=== PATIENT | male | born 1980 | race Caucasian/White ===

== ENCOUNTER 2017-03-30 23:58 | Emergency (ER) | payer OTHER ==
--- NOTE | 2017-03-31 04:39 | ED ORDER SUMMARY ---
..... Patient: JOHN GALE OrderSheet [facility] VisitID: [id number] [place] [address] 36y, M Registration Date/Time: 03/30/2017 ORDER SHEET Weight: 81.6 kg (stated) Allergies: NyQuil GENERAL ORDERS: Dormitory Keeper (Continuous) (00:17 03/31/2017 Dayne BRAVO) (0:27 JQuivey R.N.) Ethyl Alcohol Urgent (00:35 03/31/2017 Dayne BRAVO) (Ack 0:42 [employer] ER Legal Transcriptionist) (1:24 JQuivey R.N.) Urine Drug Screen Urgent (00:35 03/31/2017 Dayne BRAVO) (Ack 0:42 [employer] ER Legal Transcriptionist) (6:07 JQuivey R.N.) MEDICATION ORDERS: IV FLUIDS: Zofran IV 4 mg (NOW) (00:06 03/31/2017 JQuivey R.N. per protocol) (0:07 JQuivey R.N.) IV NS : initial bolus none -, then 1000 mL/hr (NOW) (03:22 03/31/2017 JQuivey R.N. verbal order read back to Dayne BRAVO) (3:23 JQuivey R.N.) Zofran IV 4 mg (NOW) (04:25 03/31/2017 JQuivey R.N. per protocol) (4:26 JQuivey R.N.) ORDER SHEET NOTES: [Electronically signed by Amarjit Villegas R.N. (06:34 03/31/2017)] [Electronically signed by Geoffrey Uriarte MD (21:40 03/31/2017)] [Electronically locked/signed by Amarjit Villegas R.N. (06:34 03/31/2017)]
--- NOTE | 2017-03-31 04:39 | ED ORDER SUMMARY ---
..... Patient: JOHN GALE OrderSheet [facility] VisitID: [id number] [place] [address] 36y, M Registration Date/Time: 03/30/2017 ORDER SHEET Weight: 81.6 kg (stated) Allergies: NyQuil GENERAL ORDERS: Supervisor Pressing Department (Continuous) (00:17 03/31/2017 Dayne BRAVO) (0:27 JQuivey R.N.) Ethyl Alcohol Urgent (00:35 03/31/2017 Dayne BRAVO) (Ack 0:42 [employer] ER Risk Compliance Analyst) (1:24 JQuivey R.N.) Urine Drug Screen Urgent (00:35 03/31/2017 Dayne BRAVO) (Ack 0:42 [employer] ER Risk Compliance Analyst) (6:07 JQuivey R.N.) MEDICATION ORDERS: IV FLUIDS: Zofran IV 4 mg (NOW) (00:06 03/31/2017 JQuivey R.N. per protocol) (0:07 JQuivey R.N.) IV NS : initial bolus none -, then 1000 mL/hr (NOW) (03:22 03/31/2017 JQuivey R.N. verbal order read back to Dayne BRAVO) (3:23 JQuivey R.N.) Zofran IV 4 mg (NOW) (04:25 03/31/2017 JQuivey R.N. per protocol) (4:26 JQuivey R.N.) ORDER SHEET NOTES: [Electronically signed by Amarjit Villegas R.N. (06:34 03/31/2017)] [Electronically signed by Geoffrey Uriarte MD (21:40 03/31/2017)] [Electronically locked/signed by Amarjit Villegas R.N. (06:34 03/31/2017)]
--- NOTE | 2017-03-31 04:39 | ED CLINICAL REPORT ---
Clinical Report - Physicians/Mid Levels [facility] [address] [place] [address] 03/30/2017 23:57 Patient: JOHN GALE Time Seen: 00:00. Arrived- By ambulance. Historian- patient and EMS personnel. HISTORY OF PRESENT ILLNESS Chief Complaint: DRUG OVERDOSE. This occurred just prior to arrival. Toxic symptoms present in ED with drowsiness. Single drug taken- Heroin. 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 Patient was breathing about 4-6 / min). (Patient reports he injected heroin. He was found down was treated with intranasal Narcan and was brought here to the emergency room). REVIEW OF SYSTEMS No chills, fever, sweats, calf pain or chest pain. No cough, difficulty breathing, pedal edema, palpitations or abdominal pain. No constipation, diarrhea, nausea, vomiting or urinary problems. All systems otherwise negative, except as recorded above. PAST HISTORY Problems: Substance Abuse. Anxiety Reaction. Additional Surgeries: no known surgeries. Medications: None. Allergies: NyQuil. SOCIAL HISTORY Current every day light tobacco smoker (cigarette)- less than 1/2 a pack per day. Occasional alcohol use. History of drug use: heroin, methamphetamines. FAMILY HISTORY Denies family medical history. ADDITIONAL NOTES The nursing notes have been reviewed. PHYSICAL EXAM Vital Signs: 03/30/2017 23:59 BP: 155/81. HR: 106. RR: 13. O2 saturation: 91%. Temp: 98.2 F. Pain level now: 0/10. Have been reviewed. Appearance: The patient is somnolent. ENT: Normal ENT inspection. Pharynx normal. Neck: Normal inspection. Neck supple. No carotid bruit. CVS: Normal heart rate and rhythm. Heart sounds normal. Respiratory: No respiratory distress. Breath sounds normal. Abdomen: Soft and nontender. No organomegaly. Back: Normal inspection. Skin: Skin warm and dry. Normal skin color. Normal skin turgor. Extremities: Extremities exhibit normal ROM. No lower extremity edema. Neuro: Alertness is decreased. PROGRESS AND PROCEDURES Course of Care: Patient is stable. Symptoms better. Vital signs have been reviewed. Physical exam findings are improved. Alert. No acute distress. Breath sounds normal. No respiratory distress. Normal heart rate and rhythm. Heart sounds normal. Abdomen soft and nontender. Skin warm and dry. Patient/family counseled. Old medical records reviewed. Disposition: Discharged. Condition: stable. CLINICAL IMPRESSION Overdose with heroin. Substance abuse- heroin, methamphetamines. INSTRUCTIONS Stay with responsible adult family member (or other responsible adult). Warnings: Further evaluation is necessary. GENERAL WARNINGS: Return or contact your physician immediately if your condition worsens or changes unexpectedly, if not improving as expected, or if other problems arise. Follow-up: Follow up with your doctor SAKINA NUÑEZ as needed. Understanding of the discharge instructions verbalized by patient. (Electronically signed by Geoffrey Uriarte MD 03/31/2017 21:40)
--- NOTE | 2017-03-31 04:39 | ED CLINICAL REPORT ---
Clinical Report - Physicians/Mid Levels [facility] [address] [place] [address] 03/30/2017 23:57 Patient: JOHN GALE Time Seen: 00:00. Arrived- By ambulance. Historian- patient and EMS personnel. HISTORY OF PRESENT ILLNESS Chief Complaint: DRUG OVERDOSE. This occurred just prior to arrival. Toxic symptoms present in ED with drowsiness. Single drug taken- Heroin. 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 Patient was breathing about 4-6 / min). (Patient reports he injected heroin. He was found down was treated with intranasal Narcan and was brought here to the emergency room). REVIEW OF SYSTEMS No chills, fever, sweats, calf pain or chest pain. No cough, difficulty breathing, pedal edema, palpitations or abdominal pain. No constipation, diarrhea, nausea, vomiting or urinary problems. All systems otherwise negative, except as recorded above. PAST HISTORY Problems: Substance Abuse. Anxiety Reaction. Additional Surgeries: no known surgeries. Medications: None. Allergies: NyQuil. SOCIAL HISTORY Current every day light tobacco smoker (cigarette)- less than 1/2 a pack per day. Occasional alcohol use. History of drug use: heroin, methamphetamines. FAMILY HISTORY Denies family medical history. ADDITIONAL NOTES The nursing notes have been reviewed. PHYSICAL EXAM Vital Signs: 03/30/2017 23:59 BP: 155/81. HR: 106. RR: 13. O2 saturation: 91%. Temp: 98.2 F. Pain level now: 0/10. Have been reviewed. Appearance: The patient is somnolent. ENT: Normal ENT inspection. Pharynx normal. Neck: Normal inspection. Neck supple. No carotid bruit. CVS: Normal heart rate and rhythm. Heart sounds normal. Respiratory: No respiratory distress. Breath sounds normal. Abdomen: Soft and nontender. No organomegaly. Back: Normal inspection. Skin: Skin warm and dry. Normal skin color. Normal skin turgor. Extremities: Extremities exhibit normal ROM. No lower extremity edema. Neuro: Alertness is decreased. PROGRESS AND PROCEDURES Course of Care: Patient is stable. Symptoms better. Vital signs have been reviewed. Physical exam findings are improved. Alert. No acute distress. Breath sounds normal. No respiratory distress. Normal heart rate and rhythm. Heart sounds normal. Abdomen soft and nontender. Skin warm and dry. Patient/family counseled. Old medical records reviewed. Disposition: Discharged. Condition: stable. CLINICAL IMPRESSION Overdose with heroin. Substance abuse- heroin, methamphetamines. INSTRUCTIONS Stay with responsible adult family member (or other responsible adult). Warnings: Further evaluation is necessary. GENERAL WARNINGS: Return or contact your physician immediately if your condition worsens or changes unexpectedly, if not improving as expected, or if other problems arise. Follow-up: Follow up with your doctor SAKINA NUÑEZ as needed. Understanding of the discharge instructions verbalized by patient. (Electronically signed by Geoffrey Uriarte MD 03/31/2017 21:40)
--- NOTE | 2017-03-31 04:39 | ED NURSING NOTES ---
Clinical Report - Nurses [facility] [address] [place] [address] 03/30/2017 23:57 Patient: JOHN GALE TRIAGE Triage time 23:59. Acuity: LEVEL 3. Chief Complaint: DRUG OVERDOSE. Alert. SEPSIS SCREEN: Sepsis Screen. Negative (no infection suspected/documented). BUCKY COMA SCORE: Bucky Coma Scale: 15- eyes open spontaneously (4); best verbal response- oriented x 4 (5); best motor response- obeys commands (6). --00:12 Amarjit Villegas R.N. 23:59 03/30/17. BP: 155/81. HR: 106. RR: 13. O2 saturation: 91% on room air. Temp: 98.2 F (oral). Pain level now: 0/10. --00:12 Amarjit Villegas R.N. Weight: 81.6 kg stated. Height/Length: 69 inches Per Patient. BMI: 26.6. --00:02 Amarjit Villegas R.N. Medications None. --00:01 Amarjit Villegas R.N. Allergies NyQuil. --00:01 Amarjit Villegas R.N. History Arrived by EMS. Historian: patient. Unaccompanied. Primary physician (None). This occurred just prior to arrival. Treatment PLANT OPERATIONS ENGINEER: EMS treatment PLANT OPERATIONS ENGINEER verbally communicated. Medications given- (1 mg intranasal Narcan). 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 Patient was breathing about 4-6 / min.). PAST MEDICAL HX: Immunizations: up-to-date. SOCIAL HX: Current every day light tobacco smoker- less than 1/2 a pack per day. Occasional alcohol use. History of heavy drug use: heroin, methamphetamines. No infectious disease exposure. ABUSE ASSESSMENT: No report of abuse. FALL RISK ASSESSMENT: Fall risk assessment completed. No fall risk identified. NUTRITIONAL RISK ASSESSMENT: The nutritional risk assessment revealed no deficiencies. FUNCTIONAL ASSESSMENT: Functional assessment: no impairments noted. LEARNING NEEDS ASSESSMENT: The learning needs assessment revealed no barriers. SKIN INTEGRITY ASSESSMENT: Skin integrity risk assessment completed. No skin integrity risk identified. --00:12 Amarjit Villegas R.N. PROBLEMS: Anxiety Reaction. --00:02 Amarjit Villegas R.N. ADDITIONAL SURGERIES: no known surgeries. Interventions ID band on patient. To treatment room. --00:12 Amarjit Villegas R.N. PHYSICAL ASSESSMENT 00:02. To room via stretcher. Patient gowned. GENERAL / NEURO / PSYCH: Alert. Oriented X 4. Patient appears calm and cooperative. Gag reflex present. Speech within normal limits. RESPIRATORY: Respirations not labored. SKIN: Skin intact. Skin is warm and dry. Skin color is within normal limits. Affect appears within normal limits. --00:05 Amarjit Villegas R.N. NURSING PROGRESS NOTES 00:01 03/31/2017 Site #1 started via IV in the left antecubital space with an 20g angiocath; one attempt. Blood drawn: rainbow set. Labeled in the presence of the patient and sent to the lab. Saline lock flushed with 10 mL saline (by Liborio HOU). --00:04 Amarjit Villegas R.N. 00:03. Oxygen administered by nasal cannula at 2 liters. --00:05 Amarjit Villegas R.N. 00:05. spark plug assembler, pulse oximeter and NIBP monitor placed on patient; monitor alarms on. Head of bed elevated. Two patient identifiers checked. Call light placed in reach. Bed placed in lowest position. Brakes of bed on. --00:05 Amarjit Villegas R.N. 00:05 03/31/2017 Zofran (Ondansetron HCl) IVP 4 mg given over 2 minute(s) via site #1. Allergies verified and confirmed 5 rights. IV patency established. IV site checked: no pain, redness, or swelling. IV flushed thoroughly pre- and post-medication administration. --00:07 Amarjit Villegas R.N. 00:41 03/31/17. BP: 103/56. HR: 81. RR: 11. O2 saturation: 100% on nasal cannula at 2 liters/minute. --00:42 Amarjit Villegas R.N. Cardiac rhythm: normal sinus rhythm. --00:42 Amarjit Villegas R.N. 01:23 03/31/17. BP: 122/68. HR: 84. RR: 17. O2 saturation: 100% on nasal cannula at 2 liters/minute. --01:24 Amarjit Villegas R.N. Cardiac rhythm: normal sinus rhythm. The patient is sleeping. RESPIRATORY: No respiratory distress. SKIN: Skin color within normal limits. --01:24 Amarjit Villegas R.N. 01:42 Patient informed of the need of a urine sample, urinal placed on bedrail. --01:43 Amarjit Villegas R.N. 02:36 Reminded pt again of the need for a urine sample. The patient is calm and resting quietly. RESPIRATORY: No respiratory distress. SKIN: Skin is warm and dry. Skin color within normal limits. --02:37 Amarjit Villegas R.N. 02:36 03/31/17. BP: 111/55. HR: 75. RR: 16. O2 saturation: 100% on nasal cannula at 2 liters/minute. --02:37 Amarjit Villegas R.N. 03:12 Patient assisted to restroom to obtain urine sample. --03:13 Amarjit Villegas R.N. 03:20 Patient unable to void. --03:22 Amarjit Villegas R.N. 03:23 03/31/2017 Started bag #1 1000 mL IV Fluids IV NS (Saline); at 1000 mL/hr over 1 hour(s) via site #1 --03:23 Amarjit Villegas R.N. 03:21 Patient back in bed. --03:23 Amarjit Villegas R.N. 03:36 03/31/17. BP: 117/64. HR: 77. RR: 13. O2 saturation: 95% on room air. --03:37 Amarjit Villegas R.N. Cardiac rhythm: normal sinus rhythm. The patient is sleeping. RESPIRATORY: No respiratory distress. SKIN: Skin color within normal limits. --03:37 Amarjit Villegas R.N. 04:05 03/31/2017 IV Fluids IV NS Discontinued: bag #1 infused. Total amount infused: 1000 mL. --04:05 Amarjit Vlilegas R.N. 04:05 Patient to restroom - attempting to collect urine sample. --04:06 Amarjit Villegas R.N. 04:17 Patient back in bed - still unable to provide urine sample, pt complaining of nausea, new emesis bag provided. --04:24 Amarjit Villegas R.N. 04:19 Patient vomited - new emesis bag provided. --04:24 Amarjit Villegas R.N. 04:23 03/31/2017 Started bag #2 1000 mL IV Fluids IV NS (Saline); at 1000 mL/hr over 1 hour(s) via site #1 --04:25 Amarjit Villegas R.N. 04:24 03/31/2017 Zofran (Ondansetron HCl) IVP 4 mg given over 2 minute(s) via site #1. Allergies verified and confirmed 5 rights. IV patency established. IV site checked: no pain, redness, or swelling. IV flushed thoroughly pre- and post-medication administration. --04:26 Amarjit Villegas R.N. 05:05 03/31/2017 IV Fluids IV NS Bag Change: bag #2 infused. Total amount infused: 1000. STARTED bag #3 at 1000 mL/hr. IV patency established. IV site checked: no pain, redness, or swelling. IV flushed thoroughly. (bags # [address] Uriarte verbal order). --05:05 Amarjit Villegas R.N. Cardiac rhythm: normal sinus rhythm. The patient is sleeping. RESPIRATORY: No respiratory distress. SKIN: Skin color within normal limits. --05:06 Amarjit Villegas R.N. 05:05 03/31/17. BP: 119/56. HR: 76. RR: 12. O2 saturation: 94% on room air. --05:06 Amarjit Villegas R.N. 06:00 Patient to restroom. --06:07 Amarjit Villegas R.N. 06:01. Patient ID band checked for patient name and birthdate: patient confirmed. Clean catch urine collected with return of yellow-colored clear urine; sample sent to lab for drug screen. Specimen labeled in the presence of the patient. --06:07 Amarjit Villegas R.N. 05:57 03/31/2017 IV Fluids IV NS Discontinued: bag #3 infused. Total amount infused: 1000 mL. IV patency established. IV site checked: no pain, redness, or swelling. IV flushed thoroughly. --06:08 Amarjit Villegas R.N. 06:30. The patient is calm. Overall patient status is improved- he states feels better. GENERAL / NEURO / PSYCH: Patient is calm and cooperative. Alert. Oriented X 4. RESPIRATORY: No respiratory distress. GI / : No vomiting noted. SKIN: Skin is warm and dry. Skin color within normal limits. --06:34 Amarjit Villegas R.N. DISPOSITION / DISCHARGE Departure time: 06:33. Condition at departure: stable. No learning barriers present. Discharge instructions provided and reviewed with the patient. Patient verbalized understanding. Written instructions provided in [place]. The patient was discharged home and unaccompanied at time of discharge. He left the Emergency Department ambulatory. FALL RISK ASSESSMENT: Fall risk assessment completed. No fall risk identified. --06:33 Amarjit Villegas R.N. 06:10 03/31/17. BP: 110/60. HR: 73. RR: 13. O2 saturation: 98% on room air. Pain level now: 0/10. --06:33 Amarjit Villegas R.N. 06:25 03/31/2017 Site #1 removed upon discharge. Catheter intact. Bandage applied. --06:33 Amarjit Villegas R.N. Locked/Released at 03/31/2017 6:34 by Amarjit Villegas R.N.
--- NOTE | 2017-03-31 21:41 | ED MED RECONCILIATION SUMMARY ---
Patient: JOHN GALE Medication Reconciliation Report [facility] VisitID: [id number] [address] [place] [address] 36y, M Registration Date/Time: 03/30/2017 Weight: 81.6 kg Height/Length: 69 in. BMI: 26.6 ALLERGIES: NyQuil The patient's Home Medications are listed below: NONE. The source(s) of the original Home Medication information: Not obtained. The following Medications were given to the patient in the Emergency Department: Zofran [IVP] IVP 4 mg, administered: 03/31/2017 12:05:00 AM IV NS IV Fluids bolus 0, then 1000 mL/hr, administered: 03/31/2017 3:23:00 AM IV NS IV Fluids bolus 0, then 1000 mL/hr, administered: 03/31/2017 4:23:00 AM Zofran [IVP] IVP 4 mg, administered: 03/31/2017 4:24:00 AM The following Medications were prescribed to the patient: None.
--- NOTE | 2017-03-31 21:41 | ED DISCHARGE INSTRUCTIONS ---
Patient: JOHN GALE General Instructions [facility] VisitID: [id number] [place] [address] 36y, M Registration Date/Time: 03/30/2017 Overdose with heroin. Substance abuse- heroin, methamphetamines. INSTRUCTIONS Stay with responsible adult family member (or other responsible adult). Warnings: Further evaluation is necessary. GENERAL WARNINGS: Return or contact your physician immediately if your condition worsens or changes unexpectedly, if not improving as expected, or if other problems arise. Follow-up: Follow up with your doctor SAKINA NUÑEZ as needed. Understanding of the discharge instructions verbalized by patient. ADDITIONAL INFORMATION Accidental Ingestion:Non-Toxic [Adult] You have been evaluated and treated for taking too much of a medicine or swallowing a chemical product. There is no sign of toxic effect at this time. It is very unlikely that any new symptoms will appear. As a safeguard, you must be alert for symptoms during the next 24 hours (see below). The exact symptom will depend on what was swallowed. Home Care: If LIQUID CHARCOAL was given to neutralize what was swallowed, it will cause a black color to the stools for 1-2 days. Usually, a laxative (sorbitol) is given with charcoal to speed the removal of any toxins from the intestinal tract. This may cause diarrhea for up to 24 hours. If no laxative was given with charcoal, you may get constipated. If this occurs, you may take an jqsz-gew-tqvduvv laxative such as Dulcolax pills or suppository. Prevention: Keep medicines, pesticides, and other household chemicals in their original containers. Clearly marita all harmful products if a different bottle is used. Follow Up with your doctor if all symptoms do not resolve within 24 hours or if constipation is not relieved by one or two doses of laxatives. Get Prompt Medical Attention if any of the following occur: Excess drowsiness or inability to be awakened Rapid heart beat, shakiness or seizure Fast breathing (over 25 breaths/minute) or slow breathing (less than 8 breaths/minute) Feeling shortness of breath Fever of 100.4F (38C) or higher, or as directed by your healthcare provider Vomiting or diarrhea for more than 24 hours Blood in stools or vomit (black or red color) Chest or abdominal pain Dizziness, weakness or fainting Opiate Overdose You have been treated for an overdose of opiates (such as a prescription pain medicine or heroin).Taking too much opiates is dangerous because they cause breathing to slow and possibly stop.If you stop breathing for more than 2-3 minutes, your heart will stop and you will . If your overdose was severe, you may have received an antidote called Narcan (naloxone). The antidote effect lasts for about 1-2 hours.If the opiate has not left your system by the time the Narcan wears off your symptoms may return (such as drowsiness and slow breathing). If you were addicted and physically dependent on opiates, then Narcan may cause withdrawal symptoms to appear immediately.These may consist of body aches, diarrhea, abdominal cramps, nausea, vomiting, runny nose, sneezing, sweating, yawning, restlessness, irritability, or trembling.These symptoms will go away as the Narcan wears off. Home Care Rest for the next [address] or operate any vehicle or dangerous equipment until all narcotic effects have worn off and you are no longer feeling sleepy or drowsy. If you were previously prescribed narcotic medicines for pain, do not take any more of this medicine for the next 6-8 hours, unless told otherwise. If narcotics or other drugs were swallowed, you may have been given liquid charcoal to neutralize those drugs.The charcoal may cause nausea and vomiting over the next few hours. It will also cause a black color to your stools for the next 1-2 days. Usually, a laxative is given with charcoal to speed the removal of any toxins from the intestinal tract. This may cause diarrhea for up to 24 hours. If no laxative was given, there may be a tendency toward constipation. If this occurs, you may take an mudy-rlh-kfsjaim laxative such as Dulcolax pills or suppository, or Milk of Magnesia. Follow Up with your doctor if all symptoms do not resolve within 24 hours or if constipation is not relieved after two doses of laxatives.If your overdose was related to a drug addiction, seek drug counseling. Consider a drug treatment program to help you break your habit. Return Promptly or contact your doctor if any of the following occur: Excess drowsiness or inability to be awakened Slow breathing under 8 breaths per minute Shortness of breath or cough with colored sputum Fever over 100.4F (38.0C) oral Redness, swelling or tenderness at the heroin injection site Feeling that you might harm yourself or another Drug Abuse Use and abuse of such drugs as marijuana, amphetamines (speed, crank), cocaine, heroin or prescription pain medicines (Vicodin, codeine), sedatives and sleeping pills (Valium, Klonopin), PCP, mescaline and LSD may lead to addiction or dependence. Once this occurs, you are at greater risk for any of the following: Craving for the drug and unable to stop using the drug even though you think you want to stop (psychological dependence) Drug withdrawal symptoms if you stop taking the drug (physical dependence) Loss of your job or your family Arrest, conviction and senior living sentence for possession of an illegal substance or for driving under the influence of such a substance Accidental injuries to yourself or others while you are under the influence of the drug (in a car or at home). HIV infection (much greater risk if you use IV drugs) Other sexually transmitted diseases (herpes, chlamydia, gonorrhea and others) Severe and fatal infection of the heart valves (if you use IV drugs) Stroke, heart attack, hepatitis B or C, kidney failure from overdose Home Care: Admit you have a drug problem. Ask for help from your family and close friends. Seek professional help. This could be in the form of individual psychotherapy or counseling or an outpatient, inpatient, or residential drug treatment program. Join a self-help group for drug abuse. Avoid friends who abuse drugs themselves or tempt you to continue abusing drugs. Eat a balanced diet and begin a regular exercise program. Follow Up with your doctor or as advised by our staff. Contact one of the resources below for help. National Patterson on Alcoholism and Drug Dependence www.ncadd.org 817-590-LJPL Narcotics Anonymous www.na.org 683-877-8364 National Alcohol and Substance Abuse Information Center (for referral to treatment programs) www.addictioncareNoviMedicine.GetAutoBids 270-577-8639 Get Prompt Medical Attention if any of the following occur: Agitation, anxiety, unable to sleep Unintended weight loss (more than 10 to 15 pounds over 3 months) Seizure Chest pain Fever of 100.4F (38C) or higher, or as directed by your healthcare provider Excess drowsiness or inability to be awakened Shortness of breath Slow breathing under 8 breaths per minute Cough with colored sputum Redness, swelling or tenderness at an injection site Opiate Abuse Use and abuse of heroin or prescription pain medicines (Vicodin, codeine) may lead to physical ADDICTION or psychological DEPENDENCE. Once this occurs, you are at greater risk for any of the following: - Craving for the drug and unable to stop using the drug even though you think you want to stop (psychological dependence) - Drug withdrawal symptoms if you stop taking the drug (physical addiction) - Loss of your job or your family - Arrest, conviction and senior living sentence for possession of an illegal substance or for driving under the influence of such a substance - Accidental injuries to yourself or others while you are under the influence of the drug (in a car or at home). - HIV infection (much greater risk if you use IV drugs) - Other sexually transmitted diseases (Herpes, chlamydia, gonorrhea and others) - Severe and fatal infection of the heart valves (if you use IV drugs) - Stroke, heart attack, hepatitis B or C, kidney failure - from overdose Home Care: 1) Admit you have a drug problem. Ask for help from your family and close friends. 2) Seek professional help. This could be individual psychotherapy, counseling, or a drug treatment program (outpatient or residential). 3) Join a self-help group for drug abuse. 4) Avoid friends who abuse drugs themselves or tempt you to continue your habit 5) Eat a balanced diet and begin a regular exercise program. Follow Up with your doctor or as advised by our staff. Contact one of the resources below for help. National Patterson on Alcoholism and Drug Dependence, www.ncadd.org 610-113-GBYJ Narcotics Anonymous (check your phone book for a local listing or call 508-448-5765) www.na.org National Alcohol and Substance Abuse Information Center (for referral to treatment programs) Www.Integrated Corporate HealthcareNoviMedicine.[employer] 529-286-4905 Get Prompt Medical Attention if any of the following occur: -- Symptoms of withdrawal (agitation, anxiety, trembling, sweats, diarrhea, unable to sleep) -- Chest pain -- Unexplained fever over 100.4 F (38.0 C) -- Excessive drowsiness or inability to be awakened -- Slow breathing under 8 breaths per minute -- Shortness of breath or cough with colored sputum -- Redness, swelling or tenderness at an injection site You have been given the following additional information: Overdose, Accidental (Adult) Overdose, Opiate Drug Abuse Opiate Abuse Stay with responsible adult family member (or other responsible adult). (Electronically signed by Geoffrey Uriarte MD 03/31/2017 21:40)
--- NOTE | 2017-03-31 21:41 | ED MAR SUMMARY ---
..... Medication Administration Record [facility] [address] [place] [address] Patient: JOHN GALE Visit ID: [id number] 36y, M Weight: 81.6 kg Height/Length: 69 in BMI: 26.6 ALLERGIES: NyQuil Given 00:05 03/31/2017 Amarjit Villegas R.N. Medication Administered: ZOFRAN [IVP] (ONDANSETRON HCL), Dose: 4 mg IVP over 2 minute(s), Site: #1 left AC. Medication Ordered: Zofran IV 4 mg (NOW). Start 03:23 03/31/2017 Amarjit Villegas R.N., Stop 04:03/31/2017 Amarjit Villegas R.N. Medication Administered: IV NS (SALINE), Dose: IV Fluids over 1 hour(s), Rate: 1000 mL/hr, Dispensed: 1000 mL bag, Site: #1 left AC. Medication Ordered: IV NS : initial bolus none -, then 1000 mL/hr (NOW). Start 04:23 03/31/2017 Amarjit Villegas R.N., Stop 05:57 03/31/2017 Amarjit Villegas R.N. Medication Administered: IV NS (SALINE), Dose: IV Fluids over 1 hour(s), Rate: 1000 mL/hr, Dispensed: 1000 mL bag, Site: #1 left AC. Medication Ordered: IV NS : initial bolus none -, then 1000 mL/hr (NOW). Given 04:24 03/31/2017 Amarjit Villegas R.NEduardo Medication Administered: ZOFRAN [IVP] (ONDANSETRON HCL), Dose: 4 mg IVP over 2 minute(s), Site: #1 left AC. Medication Ordered: Zofran IV 4 mg (NOW).
--- NOTE | 2017-03-31 21:41 | ED MED RECONCILIATION SUMMARY ---
Patient: JOHN GLAE Medication Reconciliation Report [facility] VisitID: [id number] [address] [place] [address] 36y, M Registration Date/Time: 03/30/2017 Weight: 81.6 kg Height/Length: 69 in. BMI: 26.6 ALLERGIES: NyQuil The patient's Home Medications are listed below: NONE. The source(s) of the original Home Medication information: Not obtained. The following Medications were given to the patient in the Emergency Department: Zofran [IVP] IVP 4 mg, administered: 03/31/2017 12:05:00 AM IV NS IV Fluids bolus 0, then 1000 mL/hr, administered: 03/31/2017 3:23:00 AM IV NS IV Fluids bolus 0, then 1000 mL/hr, administered: 03/31/2017 4:23:00 AM Zofran [IVP] IVP 4 mg, administered: 03/31/2017 4:24:00 AM The following Medications were prescribed to the patient: None.
--- NOTE | 2017-03-31 21:41 | ED MAR SUMMARY ---
..... Medication Administration Record [facility] [address] [place] [address] Patient: JOHN GALE Visit ID: [id number] 36y, M Weight: 81.6 kg Height/Length: 69 in BMI: 26.6 ALLERGIES: NyQuil Given 00:05 03/31/2017 Amarjit Villegas R.N. Medication Administered: ZOFRAN [IVP] (ONDANSETRON HCL), Dose: 4 mg IVP over 2 minute(s), Site: #1 left AC. Medication Ordered: Zofran IV 4 mg (NOW). Start 03:23 03/31/2017 Amarjit Villegas R.N., Stop 04:03/31/2017 Amarjit Villegas R.N. Medication Administered: IV NS (SALINE), Dose: IV Fluids over 1 hour(s), Rate: 1000 mL/hr, Dispensed: 1000 mL bag, Site: #1 left AC. Medication Ordered: IV NS : initial bolus none -, then 1000 mL/hr (NOW). Start 04:23 03/31/2017 Amarjit Villegas R.N., Stop 05:57 03/31/2017 Amarjit Villegas R.N. Medication Administered: IV NS (SALINE), Dose: IV Fluids over 1 hour(s), Rate: 1000 mL/hr, Dispensed: 1000 mL bag, Site: #1 left AC. Medication Ordered: IV NS : initial bolus none -, then 1000 mL/hr (NOW). Given 04:24 03/31/2017 Amarjit Villegas R.NEduardo Medication Administered: ZOFRAN [IVP] (ONDANSETRON HCL), Dose: 4 mg IVP over 2 minute(s), Site: #1 left AC. Medication Ordered: Zofran IV 4 mg (NOW).
--- NOTE | 2017-03-31 21:41 | ED DISCHARGE INSTRUCTIONS ---
Patient: JOHN GALE General Instructions [facility] VisitID: [id number] [place] [address] 36y, M Registration Date/Time: 03/30/2017 Overdose with heroin. Substance abuse- heroin, methamphetamines. INSTRUCTIONS Stay with responsible adult family member (or other responsible adult). Warnings: Further evaluation is necessary. GENERAL WARNINGS: Return or contact your physician immediately if your condition worsens or changes unexpectedly, if not improving as expected, or if other problems arise. Follow-up: Follow up with your doctor SAKINA NUÑEZ as needed. Understanding of the discharge instructions verbalized by patient. ADDITIONAL INFORMATION Accidental Ingestion:Non-Toxic [Adult] You have been evaluated and treated for taking too much of a medicine or swallowing a chemical product. There is no sign of toxic effect at this time. It is very unlikely that any new symptoms will appear. As a safeguard, you must be alert for symptoms during the next 24 hours (see below). The exact symptom will depend on what was swallowed. Home Care: If LIQUID CHARCOAL was given to neutralize what was swallowed, it will cause a black color to the stools for 1-2 days. Usually, a laxative (sorbitol) is given with charcoal to speed the removal of any toxins from the intestinal tract. This may cause diarrhea for up to 24 hours. If no laxative was given with charcoal, you may get constipated. If this occurs, you may take an buil-oeg-xvwfshz laxative such as Dulcolax pills or suppository. Prevention: Keep medicines, pesticides, and other household chemicals in their original containers. Clearly marita all harmful products if a different bottle is used. Follow Up with your doctor if all symptoms do not resolve within 24 hours or if constipation is not relieved by one or two doses of laxatives. Get Prompt Medical Attention if any of the following occur: Excess drowsiness or inability to be awakened Rapid heart beat, shakiness or seizure Fast breathing (over 25 breaths/minute) or slow breathing (less than 8 breaths/minute) Feeling shortness of breath Fever of 100.4F (38C) or higher, or as directed by your healthcare provider Vomiting or diarrhea for more than 24 hours Blood in stools or vomit (black or red color) Chest or abdominal pain Dizziness, weakness or fainting Opiate Overdose You have been treated for an overdose of opiates (such as a prescription pain medicine or heroin).Taking too much opiates is dangerous because they cause breathing to slow and possibly stop.If you stop breathing for more than 2-3 minutes, your heart will stop and you will . If your overdose was severe, you may have received an antidote called Narcan (naloxone). The antidote effect lasts for about 1-2 hours.If the opiate has not left your system by the time the Narcan wears off your symptoms may return (such as drowsiness and slow breathing). If you were addicted and physically dependent on opiates, then Narcan may cause withdrawal symptoms to appear immediately.These may consist of body aches, diarrhea, abdominal cramps, nausea, vomiting, runny nose, sneezing, sweating, yawning, restlessness, irritability, or trembling.These symptoms will go away as the Narcan wears off. Home Care Rest for the next [address] or operate any vehicle or dangerous equipment until all narcotic effects have worn off and you are no longer feeling sleepy or drowsy. If you were previously prescribed narcotic medicines for pain, do not take any more of this medicine for the next 6-8 hours, unless told otherwise. If narcotics or other drugs were swallowed, you may have been given liquid charcoal to neutralize those drugs.The charcoal may cause nausea and vomiting over the next few hours. It will also cause a black color to your stools for the next 1-2 days. Usually, a laxative is given with charcoal to speed the removal of any toxins from the intestinal tract. This may cause diarrhea for up to 24 hours. If no laxative was given, there may be a tendency toward constipation. If this occurs, you may take an muqh-vgg-httyfcu laxative such as Dulcolax pills or suppository, or Milk of Magnesia. Follow Up with your doctor if all symptoms do not resolve within 24 hours or if constipation is not relieved after two doses of laxatives.If your overdose was related to a drug addiction, seek drug counseling. Consider a drug treatment program to help you break your habit. Return Promptly or contact your doctor if any of the following occur: Excess drowsiness or inability to be awakened Slow breathing under 8 breaths per minute Shortness of breath or cough with colored sputum Fever over 100.4F (38.0C) oral Redness, swelling or tenderness at the heroin injection site Feeling that you might harm yourself or another Drug Abuse Use and abuse of such drugs as marijuana, amphetamines (speed, crank), cocaine, heroin or prescription pain medicines (Vicodin, codeine), sedatives and sleeping pills (Valium, Klonopin), PCP, mescaline and LSD may lead to addiction or dependence. Once this occurs, you are at greater risk for any of the following: Craving for the drug and unable to stop using the drug even though you think you want to stop (psychological dependence) Drug withdrawal symptoms if you stop taking the drug (physical dependence) Loss of your job or your family Arrest, conviction and intermediate sentence for possession of an illegal substance or for driving under the influence of such a substance Accidental injuries to yourself or others while you are under the influence of the drug (in a car or at home). HIV infection (much greater risk if you use IV drugs) Other sexually transmitted diseases (herpes, chlamydia, gonorrhea and others) Severe and fatal infection of the heart valves (if you use IV drugs) Stroke, heart attack, hepatitis B or C, kidney failure from overdose Home Care: Admit you have a drug problem. Ask for help from your family and close friends. Seek professional help. This could be in the form of individual psychotherapy or counseling or an outpatient, inpatient, or residential drug treatment program. Join a self-help group for drug abuse. Avoid friends who abuse drugs themselves or tempt you to continue abusing drugs. Eat a balanced diet and begin a regular exercise program. Follow Up with your doctor or as advised by our staff. Contact one of the resources below for help. National Her[place] on Alcoholism and Drug Dependence www.ncadd.org 753-930-WTFJ Narcotics Anonymous www.na.org 782-814-3129 National Alcohol and Substance Abuse Information Center (for referral to treatment programs) www.addictioncareMapflow.Szl 516-572-9938 Get Prompt Medical Attention if any of the following occur: Agitation, anxiety, unable to sleep Unintended weight loss (more than 10 to 15 pounds over 3 months) Seizure Chest pain Fever of 100.4F (38C) or higher, or as directed by your healthcare provider Excess drowsiness or inability to be awakened Shortness of breath Slow breathing under 8 breaths per minute Cough with colored sputum Redness, swelling or tenderness at an injection site Opiate Abuse Use and abuse of heroin or prescription pain medicines (Vicodin, codeine) may lead to physical ADDICTION or psychological DEPENDENCE. Once this occurs, you are at greater risk for any of the following: - Craving for the drug and unable to stop using the drug even though you think you want to stop (psychological dependence) - Drug withdrawal symptoms if you stop taking the drug (physical addiction) - Loss of your job or your family - Arrest, conviction and intermediate sentence for possession of an illegal substance or for driving under the influence of such a substance - Accidental injuries to yourself or others while you are under the influence of the drug (in a car or at home). - HIV infection (much greater risk if you use IV drugs) - Other sexually transmitted diseases (Herpes, chlamydia, gonorrhea and others) - Severe and fatal infection of the heart valves (if you use IV drugs) - Stroke, heart attack, hepatitis B or C, kidney failure - from overdose Home Care: 1) Admit you have a drug problem. Ask for help from your family and close friends. 2) Seek professional help. This could be individual psychotherapy, counseling, or a drug treatment program (outpatient or residential). 3) Join a self-help group for drug abuse. 4) Avoid friends who abuse drugs themselves or tempt you to continue your habit 5) Eat a balanced diet and begin a regular exercise program. Follow Up with your doctor or as advised by our staff. Contact one of the resources below for help. National Herreid on Alcoholism and Drug Dependence, www.ncadd.org 149-841-BHUQ Narcotics Anonymous (check your phone book for a local listing or call 952-065-2690) www.na.org National Alcohol and Substance Abuse Information Center (for referral to treatment programs) Www.enymotioncareMapflow.[employer] 069-130-5119 Get Prompt Medical Attention if any of the following occur: -- Symptoms of withdrawal (agitation, anxiety, trembling, sweats, diarrhea, unable to sleep) -- Chest pain -- Unexplained fever over 100.4 F (38.0 C) -- Excessive drowsiness or inability to be awakened -- Slow breathing under 8 breaths per minute -- Shortness of breath or cough with colored sputum -- Redness, swelling or tenderness at an injection site You have been given the following additional information: Overdose, Accidental (Adult) Overdose, Opiate Drug Abuse Opiate Abuse Stay with responsible adult family member (or other responsible adult). (Electronically signed by Geoffrey Uriarte MD 03/31/2017 21:40)
== END 2017-03-31 06:33 | disposition home or self-care (01) ==
LOC: ED SRH 23:58
DX: T40.1X1A Poisoning by heroin, accidental (unintentional), initial encounter (principal); R40.0 Somnolence; F11.10 Opioid abuse, uncomplicated; F15.10 Other stimulant abuse, uncomplicated; Z72.0 Tobacco use; Z88.8 Allergy status to other drugs, medicaments and biological substances
CPT/HCPCS: 92010; 92760; 92761; 92762; 92763; 92764; 92765; 92766; 92767